=== PATIENT | female | born 2000 | race Caucasian/White ===

== ENCOUNTER 2023-08-27 13:09 | Emergency (ER) | payer OTHER, SELFPAY ==
[2023-08-27 13:10] VITALS: BP 150/105; PULSE 87; RESP 16; TEMP 36.6; O2SAT 94; BMI 33.5
--- NOTE | 2023-08-27 13:15 | EKG12_ITS ---
Test Reason : Blood Pressure : / mmHG Vent. Rate : 072 BPM Atrial Rate : 072 BPM P-R Int : 144 ms QRS Dur : 084 ms QT Int : 388 ms P-R-T Axes : 059 075 029 degrees QTc Int : 424 ms Normal sinus rhythm Normal ECG Confirmed by ARACELI GUAJARDO, ROSEY ([id number]), news videotape editor STACIE MC ([id number]) on 08/29/2023 7:11:58 AM Referred By: Jaya Molina Confirmed By:CARMENZA CHARLES MD
--- NOTE | 2023-08-27 13:34 | NURSING ---
NO OLD EKGS
[2023-08-27 13:51] VITALS: BP 131/86; BP 132/72; BP 140/92; PULSE 73; PULSE 83; PULSE 92
[2023-08-27 14:06] LABS: Bedside Glucose 127 mg/dL (74-106)
--- NOTE | 2023-08-27 14:24 | CT_ITS ---
EXAM: CT HEAD WITHOUT INTRAVENOUS CONTRAST CLINICAL INDICATION: AMS TECHNIQUE: Multiple axial images were obtained of the head without intravenous contrast. This CT exam was performed using one or more of the following dose reduction techniques: automated exposure control, adjustment of the mA and/or kV according to patient size, and/or use of iterative reconstruction technique. RADIATION DOSE: CTDIvol = 44.99 mGy, DLP = 779.24 mGy-cm COMPARISON: No relevant prior studies available. FINDINGS: BRAIN AND EXTRA-AXIAL SPACES: Unremarkable. No intra- or extra-axial hemorrhage. No evidence of acute infarct. No intracranial mass or mass effect. There is preservation of the huang/white matter interface. Posterior fossa structures are unremarkable. Ventricles are appropriate for age. No hydrocephalus. Basal cisterns are patent. BONES/JOINTS: Unremarkable. No discrete lytic or blastic abnormalities. SOFT TISSUES: Minimal mucosal edema of the poorly pneumatized right temporal mastoid air cells. Normal left temporal mastoid air cells. SINUSES: Small mucus retention cyst in the right maxillary sinus. Normal remaining paranasal sinuses. MASTOID AIR CELLS: See above. ORBITS: Visualized globes, extraocular muscles, optic nerves and retrobulbar fat appear unremarkable. CT/Brain/Head without Contrast IMPRESSION: 1. No CT evidence of intracranial bleeding, acute ischemic infarct or acute intracranial abnormality. 2. Minimal mucosal edema of the poorly pneumatized right temporal mastoid air cells. Electronically Signed: Claudio Ortega MD at 15:06 EDT ,
--- NOTE | 2023-08-27 14:24 | US_ITS ---
EXAM: US PELVIS TRANSVAGINAL CLINICAL INDICATION: heavy menses -- currently on menses TECHNIQUE: Endovaginal pelvic ultrasound was performed with grayscale and color Doppler imaging. Endovaginal imaging was used for better evaluation of the endometrium and adnexa. COMPARISON: No relevant prior studies available. FINDINGS: UTERUS/CERVIX: Normal. The uterus measures 7.5 x 4.9 x 3.3 cm. The endometrial stripe measures 0.3 cm in thickness. RIGHT OVARY: Normal. Blood flow is present in the right ovary. The right ovary measures 2.5 x 1.7 x 1.3 cm. LEFT OVARY: Normal. Blood flow is present in the left ovary. The left ovary measures 3.2 x 2.5 x 2.0 cm. FREE FLUID: None. US/Transvaginal Non- IMPRESSION: Unremarkable pelvic ultrasound. Electronically Signed: Nestor Gomez MD at 15:56 EDT ,
--- NOTE | 2023-08-27 14:26 | EDS_ITS ---
HPI History of Present Illness Chief Complaint: Dizziness Narrative Narrative: 22-year-old female presenting with lightheadedness. She states this is been going on for about 3 days. It was worse over the last 24 hours. Yesterday she states she was in the bathtub and felt like she was tired and she knew it was unsafe to go to sleep in the bathtub so she called her to come help her to bed and she does not recall any of this being assisted to the bedroom. He states that she was blacked out on her feet. There was no fall or any apparent head injury that he notes. Patient states that since May she has been having heavy menstrual bleeding. She was seen at [facility] back then and had a transvaginal ultrasound which showed endometrial thickening. Patient was placed on control and was supposed to be taking this although she has missed a couple of doses. This is to regulate her period. Patient states that she does not believe she is but she has not checked a test. She states she has been sexually active. She did not believe she could get because she had lots of menstrual bleeding. She states in May she had bleeding for 2 weeks. In June she had a typical month and in July she had 2 weeks of bleeding again. She has some abdominal/pelvic cramping with this. She notes clots at times. She is made a follow-up with [facility] but cannot see them until October. Denies fevers or chills. Denies constipation or nieves rrhea. She is not having any chest pain or shortness of breath. PFSH PFSH Medical History no medical history Allergy/AdvReac Type Severity Reaction Status Date / Time Penicillins Allergy Mild OTHER Verified 08/27/23 13:13 Social History Smoking Status: Never smoker ROS ROS ED ROS Narrative Lightheadedness Constitutional Constitutional ED: Denies chills, fever(s) or sweats Eyes Eyes: Denies blurry vision or change in vision ENT ENT ED: Denies ear pain or sore throat Cardiovascular Cardiovascular: Reports other; Denies chest pain, palpitations or racing heartbeat Respiratory/Chest Respiratory/Chest: Denies cough, dyspnea or sputum Gastrointestinal Gastrointestinal: Denies abdominal pain, constipation, diarrhea, nausea or vomiting Genitourinary Genitourinary ED: Reports other Details: Vaginal bleeding ; Denies dysuria, hematuria or urinary frequency Musculoskeletal Musculoskeletal: Denies arthralgias, myalgias or neck pain Integumentary Denies abscess, Abrasions or rash Neurologic Neurologic: Denies headache(s), paresthesias or weakness Psychiatric Psychiatric: Denies anxiety, depression, suicidal ideation or suicidal thoughts Endocrine Endocrinology: Denies polydipsia or polyuria EXAM Physical Exam Const Vital Signs: 08/27/23 13:10 08/27/23 13:51 08/27/23 14:58 Temperature 97.8 F Temperature Source Temporal Pulse Rate 87 Pulse Rate [Lying] 73 Pulse Rate [Sitting (for 1 minute prior to obtaining)] 83 Pulse Rate [Standing (for 1 minute prior to obtaining)] 92 Respiratory Rate 16 Blood Pressure 150/105 H Blood Pressure [Lying] 132/72 H Blood Pressure [Sitting (for 1 minute prior to obtaining)] 131/86 H Blood Pressure [Standing (for 1 minute prior to obtaining)] 140/92 H Blood Pressure Mean 120 Blood Pressure Mean [Lying] 92 Blood Pressure Mean [Sitting (for 1 minute prior to obtaining)] 101 Blood Pressure Mean [Standing (for 1 minute prior to obtaining)] 108 Pulse Ox 94 Oxygen Delivery Method Room Air Room Air 08/27/23 14:58 08/27/23 16:00 Temperature Temperature Source Pulse Rate 72 76 Pulse Rate [Lying] Pulse Rate [Sitting (for 1 minute prior to obtaining)] Pulse Rate [Standing (for 1 minute prior to obtaining)] Respiratory Rate 16 17 Blood Pressure 124/78 H 125/74 H Blood Pressure [Lying] Blood Pressure [Sitting (for 1 minute prior to obtaining)] Blood Pressure [Standing (for 1 minute prior to obtaining)] Blood Pressure Mean 93 91 Blood Pressure Mean [Lying] Blood Pressure Mean [Sitting (for 1 minute prior to obtaining)] Blood Pressure Mean [Standing (for 1 minute prior to obtaining)] Pulse Ox 98 98 Oxygen Delivery Method Room Air Room Air Positive well nourished General Appearance ED: NAD; Negative for pallor HEENT Reports moist mucous membranes Eyes PERRL and EOMs intact bilaterally General Eye ED: Negative for pale conjunctiva or scleral icterus Neck no lymphadenopathy Chest Wall inspection of chest normal and palpation of chest normal Resp normal respiratory effort and clear to auscultation bilaterally Auscultation: Negative for rales, rhonchi or wheezes Cardio regular rate and regular rhythm GI normal to inspection, nondistended, normoactive bowel sounds Neuro oriented x3 and CN's II-XII intact bilaterally Sensorium / Orientation: alert Motor Exam: strength 5/5 throughout Psych mental status grossly normal Skin no rashes or lesions noted General Skin Exam: Negative for jaundice or pallor MDM MDM MDM Narrative Medical decision making narrative: 22-year-old female with vaginal bleeding which has been an issue since May. She has not seen gynecology because her appointments not until October. She is currently on control and states he is only missed a couple of doses. She has not checked a test. She does complain of lightheadedness and states that she does not recall walking from the tub to her bedroom the other night. Her states that she did walk but he assisted her and thought she was blacked out on her feet. Orthostatic vital signs show normal blood pressure response and she is not hypotensive on standing. Her heart rate does increase from 73-92. Patient given a liter normal saline. Differential includes syncope, near-syncope, dehydration, electrolyte normalities, anemia, , dysrhythmia. CBC was obtained to assess white blood cell count, hemoglobin, platelets. CMP to assess liver function, renal function, electrolytes. High- sensitivity troponin and EKG to assess for ischemia/dysrhythmia. EKG on my interpretation shows a normal sinus rhythm with a ventricular rate of 72 bpm without sign of ischemic change or ectopy. Chest x-ray my interpreted shows no acute process. Because of the altered mental status here today I did obtain a CT brain which was negative. Transvaginal ultrasound was negative. hCG negative. Lab work all unremarkable. TSH was obtained and is normal. At this point I feel the patient stable for discharge home. I counseled her to follow- up with gynecology and her primary care physician. Return precautions were d iscussed. Impression: 1. Near syncope 2. Lightheadedness 3. Dysfunctional uterine bleeding Lab Data Attestation: I reviewed the patient's lab results. Labs: Laboratory Results - last 24 hr 08/27/23 08/27/23 08/27/23 13:25 13:40 14:45 WBC 7.4 RBC 4.96 Hgb 14.6 Hct 43.8 MCV 88.3 MCH 29.4 MCHC 33.3 RDW Std Deviation 42.8 RDW Coeff of Josiah 13.2 Plt Count 340 MPV 10.4 Immature Gran % (Auto) 0.100 Neut % (Auto) 52.4 Lymph % (Auto) 39.8 Howell % (Auto) 5.0 Eos % (Auto) 2.2 Baso % (Auto) 0.5 Absolute Neuts (auto) 3.9 Absolute Lymphs (auto) 2.95 Nucleated RBC % 0 Sodium 139 Potassium 3.4 L Chloride 107 Carbon Dioxide 25.0 Anion Gap 7 BUN 12 Creatinine 0.81 Estim Creat Clear Calc 102.85 Est GFR (MDRD) Af Amer 114 Est GFR (MDRD) Non-Af 94 BUN/Creatinine Ratio 14.9 Glucose 144 H Calcium 8.9 Total Bilirubin 0.10 L AST 12 L ALT 32 Alkaline Phosphatase 48 Troponin I High Sens 4 Total Protein 7.9 Albumin 3.5 Globulin 4.4 H Albumin/Globulin Ratio 0.8 L TSH 0.92 Serum , Qual NEGATIVE Urine Color Yellow Urine Clarity Clear Urine pH 6.5 Ur Specific [place] 1.015 Urine Protein Negative Urine Glucose (UA) Normal Urine Ketones Negative Urine Occult Blood 150 H Urine Nitrite Negative Urine Bilirubin Negative Urine Urobilinogen Normal Ur Leukocyte Esterase Negative Urine RBC 0 SEEN Urine WBC 0-5 SEEN Ur Squamous Epith Cells 0-5 SEEN Urine Bacteria 0 SEEN Urine Mucus 0 SEEN POC Glucose 127 H Radiography Diagnostic Testing: Clinical Impression(s) from Imaging Studies Brain CT 08/27/23 14:24 IMPRESSION: 1. No CT evidence of intracranial bleeding, acute ischemic infarct or acute intracranial abnormality. 2. Minimal mucosal edema of the poorly pneumatized right temporal mastoid air cells. Electronically Signed: Claudio Ortega MD at 15:06 EDT , Transvaginal US 08/27/23 14:24 IMPRESSION: Unremarkable pelvic ultrasound. Electronically Signed: Nestor Gomez MD at 15:56 EDT , Chest X-Ray 08/27/23 14:58 IMPRESSION: No radiographic evidence of acute cardiopulmonary disease. Electronically Signed: Claudio Ortega MD at 15:07 EDT , Discharge Plan Triage Chief Complaint: Dizziness ED Provider: Jaya Molina Dx/Rx/DC Orders Instructions: ED Near-Fainting, Uncertain Cause Primary Care Provider: NOT,DEFINED Referrals: NOT,DEFINED [Primary Care Provider] - Disposition Disposition: Home, Self Care
[2023-08-27 14:35] LABS: Absolute Lymphocyte Count 2.95 X10^3/uL (0.83-4.51); Absolute Neutrophil Count 3.9 X10^3/uL (2.0-7.7); Basophil# 0.04 X10^3/uL; Basophil% 0.5 % (0-1); Eosinophil# 0.16 X10^3/uL; Eosinophils% 2.2 % (0-5); Hematocrit 43.8 % (37-47); Hemoglobin 14.6 g/dL (12.0-15.0); Lymphocyte # 2.95 X10^3/ul (0.83-4.51); Lymphocyte % 39.8 % (19-41); Mean Corp Hgb Conc 33.3 g/dL (32-36); Mean Corpuscular Hgb 29.4 pg (27.0-32.0); Mean Corpuscular Volume 88.3 fL (81-99); Mean Platelet Vol. 10.4 fl (6.2-12.0); Monocyte# 0.37 X10^3/uL; NRBC Flagged by Analyzer 0 % (0-5); Neutrophil # 3.88 X10^3/uL (2.7-7.7); Neutrophil % 52.4 % (47-70); Platelet Count 340 K/mm3 (150-450); RBC Distribution Width CV 13.2 % (11.6-14.6); RBC Distribution Width SD 42.8 fl (35.1-43.9); Red Blood Count 4.96 M/mm3 (4.2-5.4); White Blood Count 7.4 K/mm3 (4.4-11.0)
[2023-08-27 14:40] LABS: Internal QC Validated? YES +Cl - CLEAR BKGD; Pregnancy, Serum, hCG Quali. NEGATIVE Negative
[2023-08-27] MEDS: 0.9% Normal Saline (1000mL) 1,000 ML 1000 ML IV (14:41)
[2023-08-27 14:58] VITALS: BP 124/78; PULSE 72; RESP 16; O2SAT 98
--- NOTE | 2023-08-27 14:58 | RAD_ITS ---
EXAM: XR CHEST, 1 VIEW CLINICAL INDICATION: dyspnea TECHNIQUE: Frontal view of the chest. COMPARISON: No relevant prior studies available. FINDINGS: LUNGS AND PLEURAL SPACES: Unremarkable. No consolidation or edema. No pneumothorax. No effusion. HEART: Unremarkable. Cardiac silhouette not enlarged. MEDIASTINUM: Central airways and mediastinal contour are unremarkable. BONES/JOINTS: Unremarkable. SOFT TISSUES: Unremarkable. RAD/Chest 1 View (Portable) IMPRESSION: No radiographic evidence of acute cardiopulmonary disease. Electronically Signed: Claudio Ortega MD at 15:07 EDT ,
[2023-08-27 15:00] LABS: ALB/GLOB Ratio 0.8 RATIO (0.9-2.4); AST(SGOT) 12 U/L (15-37); Alanine Aminotransfer ALT/SGPT 32 U/L (13-56); Albumin, Serum 3.5 g/dL (3.2-5.0); Alkaline Phosphatase 48 U/L (45-117); Anion Gap 7 (5-15); BUN 12 mg/dL (7-18); BUN/Creat Ratio 14.9 RATIO (10-20); Calcium,Total 8.9 mg/dL (8.5-10.1); Chloride 107 mmol/L (98-107); Creatinine, Serum 0.81 mg/dL (0.55-1.02); EST Glomerular Filtration Rate 94 mL/min (>60); Est Glom Filt Rate - Afr Amer 114 mL/min (>60); Estimated Creatinine Clearance 102.85 ml/min; Globulin 4.4 g/dL (2.2-4.2); Glucose 144 mg/dL (74-106); Potassium 3.4 mmol/L (3.5-5.1); Protein, Total 7.9 g/dL (6.4-8.2); Sodium Level 139 mmol/L (136-145); Thyroid Stim Hormone (TSH) 0.92 uIU/mL (0.358-3.74); Troponin-I HS 4 pg/mL (3.0-54.0)
[2023-08-27 15:01] LABS: Bacteria 0 SEEN /hpf (None Seen); Mucous, Urine 0 SEEN /hpf (<or=2+); Red Blood Cells-Urine 0 SEEN /hpf (0-5)
[2023-08-27 15:09] LABS: Color, Urine Yellow (Yellow); Glucose, Dipstick Normal (Normal); Ketone-Dipstick Negative (Negative); Leukocyte Esterase-Dipstick Negative /ul (Negative); Nitrite-Dipstick Negative (Negative); Occult Blood-Urine 150 /ul (Negative); Protein-Dipstick Negative (Negative); Specific Gravity, Urine 1.015 (1.002-1.030); Urine Bilirubin Dipstick Negative (Negative); Urine Clarity Clear (Clear); Urine Urobilinogen Normal (Normal); Urine pH 6.5 (5.0 - 8.0)
[2023-08-27 15:19] LABS: Squamous Epithelial Cells - UA 0-5 SEEN /hpf (5-10); White Blood Cells 0-5 SEEN /hpf (0-5)
[2023-08-27 16:00] VITALS: BP 125/74; PULSE 76; RESP 17; O2SAT 98
[2023-08-27 17:50] VITALS: BP 124/69; PULSE 72; RESP 15; O2SAT 98
== END 2023-08-27 17:50 | disposition home or self-care (01) ==
PROVIDERS: Emergency Provider Student in an Organized Health Care Education/Training Program; Referring Provider Student in an Organized Health Care Education/Training Program; Visit Provider Student in an Organized Health Care Education/Training Program
DX: R55 Syncope and collapse (principal); R42 Dizziness and giddiness; N93.8 Other specified abnormal uterine and vaginal bleeding
CPT/HCPCS: 70450; 71045; 76830; 80053; 81001; 82962; 84443; 84484; 84703; 85025; 93005; 99284; J7030; A4216